=== PATIENT | female | born 1965 | race African-American/Black ===

== ENCOUNTER 2020-12-17 12:04 | Emergency (ER) | payer SELFPAY ==
[2020-12-17] MEDS ORDERED: Lidocaine 1% 20 ML MDV ONE (13:10)
[2020-12-17] MEDS ORDERED: Boostrix 0.5 ML (Tdap) VIAL ONE (13:10)
== END 2020-12-17 14:40 | disposition home or self-care (01) ==
LOC: MADERS 12:04
DX: S61.012A Laceration without foreign body of left thumb without damage to nail, initial encounter (principal); J45.909 Unspecified asthma, uncomplicated; F17.210 Nicotine dependence, cigarettes, uncomplicated; Z23 Encounter for immunization; W26.0XXA Contact with knife, initial encounter
CPT/HCPCS: 12002; 90471; 90715

== ENCOUNTER 2020-12-31 12:17 | Emergency (ER) | payer SELFPAY ==
[2020-12-31] MEDS ORDERED: Bacitracin 1 PK ONE (12:41)
== END 2020-12-31 13:03 | disposition home or self-care (01) ==
LOC: MADERS 12:17
DX: S61.012D Laceration without foreign body of left thumb without damage to nail, subsequent encounter (principal); J45.909 Unspecified asthma, uncomplicated; Z87.891 Personal history of nicotine dependence; Z79.899 Other long term (current) drug therapy; X58.XXXD Exposure to other specified factors, subsequent encounter

== ENCOUNTER 2024-05-14 11:58 | Emergency (ER) | payer SELFPAY ==
[2024-05-14] MEDS ORDERED: Cyclobenzaprine 10 MG TAB ONE (13:19)
[2024-05-14] MEDS ORDERED: predniSONE 20 MG TAB ONE (13:20)
[2024-05-14] MEDS ORDERED: Lidocaine 4% Patch ONE (13:20)
[2024-05-14] MEDS ORDERED: Acetaminophen 500 MG TAB ONE (13:20)
[2024-05-14 13:43] LABS: Bilirubin Negative (Negative); Blood, Urine Negative (Negative); Glucose, Urine (Dipstick) Negative (Negative); Ketone, Urine Negative (Negative); Leukocyte Negative (Negative); Nitrite Negative (Negative); Protein, Urine (Dipstick) Negative (Neg-Trace); Specific Gravity, Urine 1.025 (1.005-1.030); Urobilinogen 0.2 mg/dL (Less than 2)
[2024-05-14 13:46] LABS: Clarity Hazy (Clear)
[2024-05-14 13:51] LABS: Bacteria/HPF Rare-Few HPF (None Seen); CAUTI Indications for Culture Pelvic or flank pain; Mucous/LPF Few LPF (<2+); RBC/HPF 0-3 HPF (0-3); Urine Culture Reflex No No
== END 2024-05-14 14:10 | disposition home or self-care (01) ==
LOC: MADERS 11:58
DX: M47.26 Other spondylosis with radiculopathy, lumbar region (principal); M48.061 Spinal stenosis, lumbar region without neurogenic claudication; Z87.891 Personal history of nicotine dependence
CPT/HCPCS: 72131; 81001; J7512